=== PATIENT | male | born 1985 | race Caucasian/White ===

== ENCOUNTER 2024-04-12 14:01 | Emergency (ER) | payer OTHER, SELFPAY ==
[~2024-04-12] VITALS: Ht 180.3 cm; Wt 65.0 kg
[2024-04-12] MEDS ORDERED: ATEN-60 PO (17:19)
[2024-04-12] MEDS ORDERED: DICL50TA2 PO (17:19)
[2024-04-12] MEDS ORDERED: HYDR-4902 PO (17:19)
[2024-04-12] MEDS ORDERED: ALBU0.084 IN (17:19)
[2024-04-12 18:49] VITALS: BP 137/106; PULSE 103; RESP 17; TEMP 97.9; O2SAT 98
[2024-04-12] MEDS: TETANUS-DIPTH-ACEL PERTUSSIS 0.5ML SYR Tdap IM ONE (18:49)
== END 2024-04-12 19:04 | disposition home or self-care (01) ==
LOC: ER 14:01 → EDBD 14:01 → ER 19:04
DX: S06.0X1A Concussion with loss of consciousness of 30 minutes or less, initial encounter (principal); S40.012A Contusion of left shoulder, initial encounter; S00.83XA Contusion of other part of head, initial encounter; S20.212A Contusion of left front wall of thorax, initial encounter; F17.210 Nicotine dependence, cigarettes, uncomplicated; Z59.00 Homelessness unspecified; V29.99XA Rider (driver) (passenger) of other motorcycle injured in unspecified traffic accident, initial encounter; Y93.55 Activity, bike riding; Y92.488 Other paved roadways as the place of occurrence of the external cause; Y99.8 Other external cause status
CPT/HCPCS: 70450; 71045; 71101; 72125; 73030; 90471; 90715